=== PATIENT | male | born 2000 | race Hispanic/Latino ===

== ENCOUNTER 2021-11-07 06:10 | Emergency (ER) | payer SELFPAY ==
[~2021-11-07] VITALS: Ht 180.3 cm; Wt 99.8 kg
[2021-11-07] MEDS ORDERED: LEXAPRO5 MG PO (07:30)
== END 2021-11-07 07:31 | disposition home or self-care (01) ==
LOC: FSED 06:18
DX: F41.9 Anxiety disorder, unspecified (principal)
CPT/HCPCS: 80053; 81003; 85025; 99283